=== PATIENT | female | born 1990 | race American Indian/Alaskan Native ===

== ENCOUNTER 2017-08-09 23:57 | Emergency (ER) | payer MEDICAID ==
[2017-08-10 02:44] VITALS: BP 105/42
== END 2017-08-10 09:28 | disposition left against medical advice (07) ==
LOC: ED 23:57
DX: O26.892 Other specified pregnancy related conditions, second trimester (principal); R51 Headache; M79.604 Pain in right leg; Z3A.27 27 weeks gestation of pregnancy; Z53.21 Procedure and treatment not carried out due to patient leaving prior to being seen by health care provider

== ENCOUNTER 2017-10-09 12:22 | Outpatient (CLI) | payer MEDICAID ==
[2017-10-09] MEDS ORDERED: LACTATED RINGERS 1,000 ML IV ONE (12:38)
[2017-10-09 14:24] LABS: Bilirubin,Urine NEG (Negative); Blood,Urine NEG (Negative); Color,Urine Yellow (Yellow); Mucus,Urine FEW /HPF; Protein,Urine <15 mg/dL mg/dL (Negative); Urobilinogen,Urine < 2.0 mg/dL (<2.0)
[2017-10-09 14:44] VITALS: BP 101/57
== END 2017-10-09 15:17 | disposition home or self-care (01) ==
LOC: TRG 12:22
PROVIDERS: ATTEND Obstetrics & Gynecology
DX: O47.03 False labor before 37 completed weeks of gestation, third trimester (principal); Z3A.36 36 weeks gestation of pregnancy
CPT/HCPCS: 59025; 81001; 96360; 96361; J7120

== ENCOUNTER 2017-10-22 17:47 | Outpatient (CLI) | payer MEDICAID ==
--- NOTE | 2017-10-22 18:57 | Ultrasound Report ---
FINAL REPORT EXAM: US OB LIMITED HISTORY: decreased movement TECHNIQUE: Ultrasound imaging of the fetus was performed. PRIORS: None. FINDINGS: A single live intrauterine fetus is present in cephalic presentation with a heart rate of 145 beats per minute. Amniotic fluid index is 14.1 centimeters. The placenta is grade 3 and fundal/right lateral and position. IMPRESSION: Single live intrauterine fetus in cephalic presentation.
--- NOTE | 2017-10-22 18:59 | Ultrasound Report ---
FINAL REPORT EXAM: US OB BPP WO NON-STRESS HISTORY: decreased movement TECHNIQUE: Grayscale and color doppler ultrasound of the fetus was performed for biophysical profile. PRIORS: None. FINDINGS: A single, live intrauterine fetus is present in cephalic presentation with a heart rate of 145 beats per minute. The placenta is fundal/right lateral in location. The amniotic fluid index is 14.1 centimeters. Estimated gestational age is 38 weeks and 0 days. Biophysical profile score of 8 out of 8 was noted. Scores of 2 out of 2 were given for breathing movements, movements, posterior and tone and qualitative amniotic fluid volume. IMPRESSION: Normal biophysical profile.
== END 2017-10-22 19:05 | disposition home or self-care (01) ==
LOC: TRG 17:47
PROVIDERS: ATTEND Obstetrics & Gynecology
DX: O47.1 False labor at or after 37 completed weeks of gestation (principal); Z3A.37 37 weeks gestation of pregnancy
CPT/HCPCS: 59025; 76815; 76819